=== PATIENT | female | born 2000 | race Caucasian/White ===

== ENCOUNTER 2018-11-16 15:49 | Inpatient (IN) ==
[2018-11-16 16:49] LABS: Pregnancy Test, Urine Negative (Negative)
[2018-11-16 16:52] LABS: Appearance Urine Cloudy (Clear); Bacteria Urine Automated 2+ (Negative); Bilirubin Urine Negative (Negative); Blood Urine Negative (Negative); Color Urine Yellow; Epithelial Cell Urine Auto >30 /lpf (0-5); Glucose Urine UA Negative (Negative); Ketones Urine Negative (Negative); Leukocyte Esterase Urine Trace (Negative); Nitrite Urine Negative (Negative); Protein Urine Negative (Negative); RBC Urine Automated 0-4 /hpf (0-4); Specific Gravity Urine 1.013 (1.000-1.030); Urobilinogen Urine Negative (Negative); pH Urine 6.5 (4.5-7.5)
[2018-11-16 17:04] LABS: Basophils # (auto) 0.01 K/uL (0-0.2); Basophils % (auto) 0.1 %; Eosinophils # (auto) 0.03 K/uL (0-0.5); Eosinophils % (auto) 0.4 %; Hematocrit (blood only) 36.7 % (37-47); Hemoglobin 12.2 g/dL (12.0-16.0); Immature Granulocytes # (auto) 0.02 K/uL (0.00-0.02); Immature Granulocytes % (auto) 0.3 %; Lymphocytes # (auto) 2.05 K/uL (1.2-3.4); Lymphocytes % (auto) 28.7 %; Mean Corpuscular Hemoglobin 30.2 pg (25-34); Mean Corpuscular Hgb Conc 33.2 g/dL (32-36); Mean Corpuscular Volume 90.8 fL (80-100); Mean Platelet Volume 12.3 fL (7.4-10.4); Monocytes # (auto) 0.45 K/uL (0.11-0.59); Monocytes % (auto) 6.3 %; Neutrophils # (auto) 4.58 K/uL (1.4-6.5); Neutrophils % (auto) 64.2 %; Platelet Count 207 K/uL (130-400); RDW Coefficient of Variation 13.2 % (11.5-14.5); RDW Standard Deviation 43.9 fL (36.4-46.3); Red Blood Count 4.04 M/uL (4.2-5.4); White Blood Count 7.14 K/uL (4.8-10.8)
[2018-11-16 17:05] LABS: Cast Urine Automated 0 /lpf (0-5)
[2018-11-16 17:19] LABS: Albumin Level 3.5 gm/dl (3.4-5.0); BUN Creatinine Ratio 12.2 (10-20); Calcium 8.7 mg/dl (8.5-10.1); Creatinine Clr Calc Pharmacy 115.2 ml/min; Est GFR (African American) 149.2; Est GFR (Non-African American) 128.7; Potassium 3.8 mmol/L (3.5-5.1)
[2018-11-16 17:22] LABS: Salicylate < 1.7 mg/dl (2.8-20)
[2018-11-16 17:23] LABS: Acetaminophen < 2 ug/ml (10-30)
[2018-11-16 17:30] LABS: Bilirubin,Total 0.3 mg/dl (0.2-1); Globulin 3.6 gm/dl (2.5-4.0); Thyroid Stimulating Hormone 0.706 uIu/ml (0.300-4.500); Total Protein 7.1 gm/dl (6.4-8.2)
[2018-11-16 17:35] LABS: Amphetamines+Metham, Urine Neg (Neg); Barbiturates, Urine Neg (Neg); Benzodiazepine, Urine Pos (Neg); Cocaine, Urine Neg (Neg); MDMA (Ecstacy), Urine Neg (Neg); Methadone, Urine Neg (Neg); Opiate, Urine Neg (Neg); Phencyclidine, Urine Neg (Neg)
--- NOTE | 2018-11-16 17:55 | Emergency Department Note ---
Entered by Marga Wren acting as a scribe for History of Present Illness General Chief complaint: Mental Health Evaluation Stated complaint: MENTAL HEALTH EVAL Source: patient History of Present Illness Provider complaint: mental health evaluation Onset (ago): week(s) 1 Location: head Quality: + other (mental health evaluation) Associated symptoms: + denies other symptoms (drug use, alcohol use, homicidal ideation, attempts to hurt self) and + other (depression came back secondary to decreased [place], major and school work more difficult, drama in friend group, hard to get out of bed, skipping classes, getting behind in school work, suicidal thoughts via overdose, thinks inpatient treatment may be a good idea) Treatments prior to arrival: none The patient is a 17 year old female who presents to the ED with for a mental health evaluation that started 1 week ago. The patient states that her Lexapro was decreased 1 week ago which has caused her depression to come back. The patient states that her major and school work have been much more difficult recently and there has been increased drama in her friend group. The patient states that it has been hard to get out of bed, which has caused her to skip classes and get behind in school work. The patient states that she has not tried to hurt herself but has had suicidal thoughts via overdosing. The patient denies alcohol and drug use. The patient also denies homicidal ideation. The patient states that she has never had inpatient treatment but she notes that it may be a good idea at this time. The patient denies taking any treatments prior to arrival. Home Medications Home Medications Medication Instructions Recorded Confirmed Type escitalopram oxalate [Lexapro] 5 mg PO HS 11/16/18 11/16/18 History norgestimate-ethinyl estradiol 1 tab PO HS 11/16/18 11/16/18 History [Sprintec (28)] Allergies Allergy/AdvReac Type Severity Reaction Status Date / Time No Known Allergies Allergy Verified 11/16/18 17:34 Past Med/Surg History Medical History Depression OCD (obsessive compulsive disorder) Social History Preferred Language: Martiniquais Communication Ability: Effective Seat Cover Maker Required: No Feels Safe at Home: Yes Smoking Status: Never smoker Review of Systems See HPI for pertinent positives & negatives. and A total of 10 systems reviewed and were otherwise negative Physical Exam Vital Signs Vital Signs - 24 hr 11/16/18 16:04 Temperature 36.9 C Temperature Source Oral Sepsis Recent Fever Within 48 Hours No Sepsis New/Unexplained Change in Mental Status No Sepsis Action Taken by Nursing No Action Required Pulse Rate 88 Pulse Rhythm Regular Pulse Strength Normal Respiratory Rate 18 Respiratory Effort / Characteristics Non-Labored Spontaneous Respiratory Depth Normal Respiratory Pattern Regular Blood Pressure 121/78 Blood Pressure Mean 92 Blood Pressure Position Sitting Pulse Oximetry 99 Oxygen Delivery Method Room Air GENERAL: Awake, alert, well-appearing HENT: Normocephalic, atraumatic. EYES: Normal conjunctiva. Sclera non-icteric. RESPIRATORY: Clear to auscultation. Normal respiratory effort. CARDIAC: Normal rate. Normal rhythm. Extremities warm and well perfused. NEURO: Normal sensorium. No sensory or motor deficits noted. No facial droop or slurred speech. SKIN: Warm and dry. No rash or jaundice noted. PSYCH: Endorses SI. Denies HI and hallucinations. Intact insight. Course 1656: Past medical records reviewed. The patient was evaluated in room A6. A complete history and physical exam was performed. 1741: Patient is medically cleared. 1853: The patient was accepted to [address] [place] [address]. Administered Medications Escitalopram Oxalate (Lexapro Tab) 5 mg PO HS SOFI Stop: 12/16/18 21:59 Last Admin: 11/16/18 22:25 Dose: 5 mg Documented by: [id number] Medical Decision Making Differential Diagnosis Differential diagnosis: Etiologies such as psychiatric disorder, infection, hypoglycemia, electrolyte abnormalities, cardiac sources, intracerebral event, toxicological process, neurologic disorder, as well as others were entertained. Medical Records Attestation: I reviewed the patient's medical records. Home Medications Current Medication List: was personally reviewed by me Laboratory Data Attestation: I reviewed the patient's lab results. Result diagrams: 11/16/18 16:40 11/16/18 16:40 Lab Results 11/16/18 11/16/18 11/16/18 Range/Units 16:19 16:19 16:19 WBC (4.8-10.8) K/uL RBC (4.2-5.4) M/uL Hgb (12.0-16.0) g/dL Hct (37-47) % MCV (80-100) fL MCH (25-34) pg MCHC (32-36) g/dL RDW Std Deviation (36.4-46.3) fL RDW Coeff of Michelle (11.5-14.5) % Plt Count (130-400) K/uL MPV (7.4-10.4) fL Immature Gran % (Auto) % Neut % (Auto) % Lymph % (Auto) % Blanco % (Auto) % Eos % (Auto) % Baso % (Auto) % Immature Gran # (Auto) (0.00-0.02) K/uL Neut # (Auto) (1.4-6.5) K/uL Lymph # (Auto) (1.2-3.4) K/uL Blanco # (Auto) (0.11-0.59) K/uL Eos # (Auto) (0-0.5) K/uL Baso # (Auto) (0-0.2) K/uL Sodium (136-145) mmol/L Potassium (3.5-5.1) mmol/L Chloride (98-107) mmol/L Carbon Dioxide (21-32) mmol/L Anion Gap (3-11) BUN (7-18) mg/dl Creatinine (0.6-1.2) mg/dl Est Cr Clr Drug Dosing ml/min Est GFR ( Amer) Est GFR (Non-Af Amer) BUN/Creatinine Ratio (10-20) Glucose (70-99) mg/dl Calcium (8.5-10.1) mg/dl Total Bilirubin (0.2-1) mg/dl AST (15-37) U/L ALT (12-78) U/L Alkaline Phosphatase (45-117) U/L Total Protein (6.4-8.2) gm/dl Albumin (3.4-5.0) gm/dl Globulin (2.5-4.0) gm/dl Albumin/Globulin Ratio (0.9-2) TSH (0.300-4.500) uIu/ml Urine Color Yellow Urine Appearance Cloudy A (Clear) Urine pH 6.5 (4.5-7.5) Ur Specific [place] 1.013 (1.000-1.030) Urine Protein Negative (Negative) Urine Glucose (UA) Negative (Negative) Urine Ketones Negative (Negative) Urine Blood Negative (Negative) Urine Nitrite Negative (Negative) Urine Bilirubin Negative (Negative) Urine Urobilinogen Negative (Negative) Ur Leukocyte Esterase Trace H (Negative) Urine WBC (Auto) 10-30 H (0-5) /hpf Urine RBC (Auto) 0-4 (0-4) /hpf U Hyaline Cast (Auto) 0 (0-5) /lpf U Epithel Cells (Auto) >30 H (0-5) /lpf Urine Bacteria (Auto) 2+ H (Negative) Ur Renal Epithelial Cell Not Reportable Urine Test Negative (Negative) Salicylates (2.8-20) mg/dl Urine Opiates Screen Neg (Neg) Ur Methadone, Qual Neg (Neg) Acetaminophen (10-30) ug/ml Urine Barbiturates Neg (Neg) Ur Phencyclidine (PCP) Neg (Neg) U Amphetamin/Meth Scrn Neg (Neg) MDMA (Ecstasy) Screen Neg (Neg) U Benzodiazepines Scrn Pos H (Neg) Ur Cocaine Metabolite Neg (Neg) U Marijuana (THC) Screen Neg (Neg) Ethyl Alcohol mg/dL (0-3) mg/dl 11/16/18 11/16/18 11/16/18 Range/Units 16:40 16:40 16:40 WBC 7.14 (4.8-10.8) K/uL RBC 4.04 L (4.2-5.4) M/uL Hgb 12.2 (12.0-16.0) g/dL Hct 36.7 L (37-47) % MCV 90.8 (80-100) fL MCH 30.2 (25-34) pg MCHC 33.2 (32-36) g/dL RDW Std Deviation 43.9 (36.4-46.3) fL RDW Coeff of Michelle 13.2 (11.5-14.5) % Plt Count 207 (130-400) K/uL MPV 12.3 H (7.4-10.4) fL Immature Gran % (Auto) 0.3 % Neut % (Auto) 64.2 % Lymph % (Auto) 28.7 % Blanco % (Auto) 6.3 % Eos % (Auto) 0.4 % Baso % (Auto) 0.1 % Immature Gran # (Auto) 0.02 (0.00-0.02) K/uL Neut # (Auto) 4.58 (1.4-6.5) K/uL Lymph # (Auto) 2.05 (1.2-3.4) K/uL Blanco # (Auto) 0.45 (0.11-0.59) K/uL Eos # (Auto) 0.03 (0-0.5) K/uL Baso # (Auto) 0.01 (0-0.2) K/uL Sodium 139 (136-145) mmol/L Potassium 3.8 (3.5-5.1) mmol/L Chloride 107 (98-107) mmol/L Carbon Dioxide 23 (21-32) mmol/L Anion Gap 9.0 (3-11) BUN 8 (7-18) mg/dl Creatinine 0.65 (0.6-1.2) mg/dl Est Cr Clr Drug Dosing 115.2 ml/min Est GFR ( Amer) 149.2 Est GFR (Non-Af Amer) 128.7 BUN/Creatinine Ratio 12.2 (10-20) Glucose 76 (70-99) mg/dl Calcium 8.7 (8.5-10.1) mg/dl Total Bilirubin 0.3 (0.2-1) mg/dl AST 17 (15-37) U/L ALT 23 (12-78) U/L Alkaline Phosphatase 39 L (45-117) U/L Total Protein 7.1 (6.4-8.2) gm/dl Albumin 3.5 (3.4-5.0) gm/dl Globulin 3.6 (2.5-4.0) gm/dl Albumin/Globulin Ratio 1.0 (0.9-2) TSH 0.706 (0.300-4.500) uIu/ml Urine Color Urine Appearance (Clear) Urine pH (4.5-7.5) Ur Specific [place] (1.000-1.030) Urine Protein (Negative) Urine Glucose (UA) (Negative) Urine Ketones (Negative) Urine Blood (Negative) Urine Nitrite (Negative) Urine Bilirubin (Negative) Urine Urobilinogen (Negative) Ur Leukocyte Esterase (Negative) Urine WBC (Auto) (0-5) /hpf Urine RBC (Auto) (0-4) /hpf U Hyaline Cast (Auto) (0-5) /lpf U Epithel Cells (Auto) (0-5) /lpf Urine Bacteria (Auto) (Negative) Ur Renal Epithelial Cell Urine Test (Negative) Salicylates < 1.7 L (2.8-20) mg/dl Urine Opiates Screen (Neg) Ur Methadone, Qual (Neg) Acetaminophen < 2 L (10-30) ug/ml Urine Barbiturates (Neg) Ur Phencyclidine (PCP) (Neg) U Amphetamin/Meth Scrn (Neg) MDMA (Ecstasy) Screen (Neg) U Benzodiazepines Scrn (Neg) Ur Cocaine Metabolite (Neg) U Marijuana (THC) Screen (Neg) Ethyl Alcohol mg/dL (0-3) mg/dl 11/16/18 Range/Units 16:40 WBC (4.8-10.8) K/uL RBC (4.2-5.4) M/uL Hgb (12.0-16.0) g/dL Hct (37-47) % MCV (80-100) fL MCH (25-34) pg MCHC (32-36) g/dL RDW Std Deviation (36.4-46.3) fL RDW Coeff of Michelle (11.5-14.5) % Plt Count (130-400) K/uL MPV (7.4-10.4) fL Immature Gran % (Auto) % Neut % (Auto) % Lymph % (Auto) % [place] % (Auto) % Eos % (Auto) % Baso % (Auto) % Immature Gran # (Auto) (0.00-0.02) K/uL Neut # (Auto) (1.4-6.5) K/uL Lymph # (Auto) (1.2-3.4) K/uL [place] # (Auto) (0.11-0.59) K/uL Eos # (Auto) (0-0.5) K/uL Baso # (Auto) (0-0.2) K/uL Sodium (136-145) mmol/L Potassium (3.5-5.1) mmol/L Chloride (98-107) mmol/L Carbon Dioxide (21-32) mmol/L Anion Gap (3-11) BUN (7-18) mg/dl Creatinine (0.6-1.2) mg/dl Est Cr Clr Drug Dosing ml/min Est GFR ( Amer) Est GFR (Non-Af Amer) BUN/Creatinine Ratio (10-20) Glucose (70-99) mg/dl Calcium (8.5-10.1) mg/dl Total Bilirubin (0.2-1) mg/dl AST (15-37) U/L ALT (12-78) U/L Alkaline Phosphatase (45-117) U/L Total Protein (6.4-8.2) gm/dl Albumin (3.4-5.0) gm/dl Globulin (2.5-4.0) gm/dl Albumin/Globulin Ratio (0.9-2) TSH (0.300-4.500) uIu/ml Urine Color Urine Appearance (Clear) Urine pH (4.5-7.5) Ur Specific [place] (1.000-1.030) Urine Protein (Negative) Urine Glucose (UA) (Negative) Urine Ketones (Negative) Urine Blood (Negative) Urine Nitrite (Negative) Urine Bilirubin (Negative) Urine Urobilinogen (Negative) Ur Leukocyte Esterase (Negative) Urine WBC (Auto) (0-5) /hpf Urine RBC (Auto) (0-4) /hpf U Hyaline Cast (Auto) (0-5) /lpf U Epithel Cells (Auto) (0-5) /lpf Urine Bacteria (Auto) (Negative) Ur Renal Epithelial Cell Urine Test (Negative) Salicylates (2.8-20) mg/dl Urine Opiates Screen (Neg) Ur Methadone, Qual (Neg) Acetaminophen (10-30) ug/ml Urine Barbiturates (Neg) Ur Phencyclidine (PCP) (Neg) U Amphetamin/Meth Scrn (Neg) MDMA (Ecstasy) Screen (Neg) U Benzodiazepines Scrn (Neg) Ur Cocaine Metabolite (Neg) U Marijuana (THC) Screen (Neg) Ethyl Alcohol mg/dL < 3.0 (0-3) mg/dl Blood Pressure Blood Pressure Findings: Normal blood pressure Blood Pressure Disposition: did not require urgent referral MDM Narrative Patient is a 17-year-old female [facility] with reports of concern for suicidal ideation and thoughts. Patient denies any HI or self-injurious behaviors. Long history of anxiety depression. Recently tapering off Lexapro. This did control her depression but was not controlling her OCD with thoughts to switch to possible BuSpar. Depression is worse in the last 3 weeks. Thoughts of wanting to harm her self last several days including possibly overdosing on medications. States she does have access to Tylenol and her Lexapro at her dorm. Denies any current attempts to harm herself. Denies any other significant medical history. Endorses depression symptoms with fatigue and social and school stressors. information systems manager assist with evaluation. Medical clearance completed. Believe the patient would benefit from inpatient treatment and patient was in agreement. Bed search was initiated. [facility]. Patient denies urinary symptoms and believe urine is contaminant. Patient's accepted by [facility] for further treatment of her suicidal ideations and depression/anxiety. Impression & Plan Suicidal thoughts, Mood disorder Discharge Plan Visit Data *Final* Discharge Date/Time: 11/16/18 18:41 Chief Complaint: Mental Health Evaluation Stated Complaint: MENTAL HEALTH EVAL ED Provider: Kranthi Shah Discharge Problem: Suicidal thoughts, Mood disorder Patient Disposition: Admitted As Inpatient Discharge Instructions Interventions: ED Discharge Assessment Last Done: 11/16/18 18:41 The scribe's documentation has been prepared under my direction and personally reviewed by me in its entirety. I confirm that the note above accurately reflects all work, treatment, procedures, and medical decision making performed by me.
[2018-11-16] MEDS ORDERED: BISMUTH SUBSALICYLATE PER ML OMNICELL CHARGE PO PRN (18:27)
[2018-11-16] MEDS ORDERED: MAGNESIUM HYDROXIDE SUSP 30 ML UDC PO PRN (18:27)
[2018-11-16] MEDS ORDERED: SODIUM CHLORIDE 0.65% NA SOLN 45 ML (OCEAN) PRN (18:27)
[2018-11-16] MEDS ORDERED: ALUMINUM/MAGNESIUM SUSP 30 ML UDC PO PRN (18:27)
[2018-11-16] MEDS ORDERED: ESCITALOPRAM OXALATE 10 MG TAB PO SCH (22:00)
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
[2018-11-17] MEDS ORDERED: INFLUENZA ADMINISTRATION CHARGE ONE (09:00)
[2018-11-17] MEDS ORDERED: INFLUENZA VIRUS QUAD VACCINE 0.5 ML SYR IM ONE (09:00)
[2018-11-17] MEDS: ACETAMINOPHEN 325 MG TAB PO PRN ×2 (11:50→22:31)
[2018-11-17] MEDS ORDERED: SPRINTEC PO SCH (16:00)
[2018-11-17] MEDS ORDERED: BIRTH CONTROL PO SCH (16:00)
[2018-11-17] MEDS: NON-FORMULARY PATIENT'S OWN MED PO SCH (21:20)
[2018-11-17] MEDS ORDERED: NORGESTIMATE ETHINYL ESTRADIOL PO SCH (22:00)
[2018-11-17] MEDS ORDERED: FLUVOXAMINE MALEATE 50 MG TAB PO SCH (22:00)
--- NOTE | 2018-11-18 12:50 | Psychiatric Progress Note ---
Date of Service November 18, 2018 Impression / Recommendations Impression 17-year-old female admitted voluntarily for inpatient psychiatric treatment on 11/16/18 upon referral from [facility] counseling [facility] psychological services office. Patient had been reporting worsening depression associated with medication adjustments and increased psychosocial stressors. Patient admits to increased presence of suicidal ideation, eventually developing to consideration to overdose on medications. Patient did submit her 72-hour notice shortly after arriving on the unit, which expires 11/19 at 2137. Pt has been started on fluvoxamine, which will be titrated to 100mg this evening. She also has busp irone available 10 mg 3 times daily as needed for patient to utilize for acute anxiety on the unit, and potentially continue as a bridgingagent until fluvoxamine efficacy is determined. Pt participated in a family meeting with her father, sister, and aunt. At this time, inpatient psychiatric treatment is medically necessary due to worsening depression, persistent SI, and reported consideration to overdose on pills to remain on secured at this time. Patient remains at high risk of harm to self if she is discharged prematurely without adequate medication of risk factors. (1) Suicidal thoughts: - Admitted to a locked inpatient behavioral health unit, on q15 minute safety checks - Encourage medication initiation/adjustments as indicated - Encourage participation in group and recreational therapies - Gather collateral information from outpatient providers - Suggest family meeting to involve outpatient supports in safety planning - Arrange appropriate aftercare 11/18 - Pt denies SI since time of admission - Friend has reportedly removed medications from patient's dorm room - Family meeting held today to discuss safety planning (2) Depression: 11/17 - Discontinue escitalopram 5 mg due to lack of efficacy and reported decreased libido. Initiate fluvoxamine 50 mg this evening. Risks, benefits, and potential side effects were reviewed with patient who verbalized understanding and was agreeable with initiating fluvoxamine. - Coordinate care with current outpatient providers, records from [facility] were received and reviewed - Involve outpatient supports in aftercare, safety, and discharge planning - Encourage attendance for group and recreational programming to develop healthy and effective coping strategies 11/18 - Tolerated initiation of fluvoxamine - will titrate to 100mg this evening - Aftercare arrangements have been made - Family meeting held today - Pt's 72-hour notice expires tomorrow evening, will continue to ensure stability of mood and resolution of SI with plan for discharge tomorrow afternoon (3) Generalized anxiety disorder: 11/17 - Meets criteria for generalized anxiety disorder, but also reports intrusive thoughts, obsessions, and compulsions that would be consistent with a diagnosis of OCD - Agree with utilization of buspirone as needed as a bridging-agent until efficacy of fluvoxamine can be determined. We will order 10 mg of buspirone 3 times daily as needed - Initiate fluoxetine as discussed above, titrate as tolerated to target reported symptoms - Assist with development of healthy and effective coping strategies - Coordinate referrals for outpatient therapist 11/18 - Has not yet required prn dosing of buspirone - Pt does have 10mg tablets of buspirone as sent by her outpatient provider to a pharmacy, and will likely not need this medication ordered on discharge if planning to continue Inventory Assets Strengths: Willingness for treatment, support of family, sister living locally Needs: Medication adjustments to target reported symptoms, therapeutic interventions to allow for development of healthy coping strategies Risk Factors Assessment Male: No : No Do You Have Access To A Gun?: No Health Problems: No Mental Health Diagnoses: Yes Substance Use Disorders: No Previous Attempt: No Family History of Suicide: No Previous Psychiatric Hospitalization: No Hopelessness: Yes Smoker: No Protective Factors Assessment Jew Beliefs: Yes : No Responsible for Young Children: No Employed: No Stable Relationships: Yes Supportive Family: Yes Good Rapport with Provider: Yes Interval History Identifying Information MERY MORALES is a 17-year-old F who currently lives in an apartment with her roommates. Patient has a reported history of depression, anxiety, and OCD, and was admitted on 11/16/18 18:27 on a 201 voluntary commitment for worsening depression and suicidal ideation, with verbalized consideration to overdose on medications. Patient was referred to the ED following a walk-in appointment at [facility]. Patient did sign a 72-hour shortly after arrival to the unit, this expires on 11/19 at 2137. Chief Complaint "I'm feeling a lot better." Review of Systems Notes Constitutional: reports improved sleep last evening Cardiovascular: denied Respiratory: denied Gastrointestinal: denied Neurological: denied Psychiatric: denies symptoms other than stated above Total of at least 10 systems reviewed, pertinent positives as above and in HPI. Sleep Information Total Hours of Sleep: 7.25 Meal Information Percent Meal Consumed - Breakfast: 100 Percent Meal Consumed - Lunch: 100 Percent Meal Consumed - Dinner: 100 Subjective Subjective Patient was seen & assessed and interval progress reviewed with nursing and social work. Staff reports the patient has been attending group programming and interacting with peers. She has a family meeting scheduled with her father, sister, and aunt today at 11:00. Pt rated her mood a 7/10 and "hopeful" last evening. Pt was seen today to assess progress since admission. Pt states she is feeling "a lot better." She states, "I haven't had any [suicidal] thoughts, so that's good." Pt reports that her family was very supportive during the meeting, and she was able to coordinate various schedules for them to check-in on her. She is also planning to schedule "coffee dates" with her sister during the week to touch [facility]. Pt states that a friend has removed the extra pills f rom her dorm room and is either bringing them to the unit or taking them to [facility] on campus for disposal. Pt reports feeling "happy" and more optimistic. She states that she is feeling much improved and is optimistic about the likelihood of discharge tomorrow. Pt's 72-hour notice remains in place, which expires tomorrow evening. Pt is agreeable to remaining on the unit until tomorrow, to allow for titration of fluvoxamine this evening and to ensure stability of mood and resolution of SI prior to discharge. Pt denies other acute needs or concerns at this time. Physical Exam Psychiatric Orientation: alert, oriented x 3 and cooperative (and pleasant) Apperance: appropriately dressed, appropriately groomed and appeared stated age Eye Contact: good eye contact Motor Behavior: steady gait and station and no abnormal motor movements Speech: normal rate/rhythm/volume of speech Affect: euthymic affect (appearing mildly fatigued, as she was awoken from a nap) and mood congruent with affect Mood: no depressed mood ("A lot better") Thought Process: goal directed thought process, linear/logical thought process, clear/coherent thought process and thought association intact Thought Content: reality based without delusions; no hopelessness and no worthlessness Suicidal Thoughts: denies suicidal thoughts ("No [suicidal] thoughts, so that's good") and denies suicidal intent Homicidal Thoughts: denies homicidal thoughts Hallucinations: no auditory hallucinations and no visual hallucinations Cognition: attention grossly intact and language grossly intact Insight: good insight Judgement: good judgement Vital Signs (Past 24 Hours) Last Vital Signs Temp 36.5 C 11/18/18 06:51 Pulse 82 11/18/18 06:51 Resp 18 11/18/18 06:51 BP 101/65 11/18/18 06:51 Pulse Ox 98 11/16/18 20:32 Results & Data Current Inpatient Medications Current Inpatient Medications: Current Inpatient Medications Acetaminophen (Tylenol) 650 mg PO Q4H PRN PRN Reason: Headache or Minor Fever Stop: 12/16/18 18:26 Last Admin: 11/17/18 22:31 Dose: 650 mg Documented by: Al Hydrox/Mg Hydrox/Simethicone (Maalox) 30 ml PO Q4H PRN PRN Reason: GI Upset Stop: 12/16/18 18:26 Bismuth Subsalicylate (Kaopectate) 15 ml PO PRN PRN PRN Reason: Loose Stool Stop: 12/16/18 18:26 Buspirone HCl (Buspar) 10 mg PO TID PRN PRN Reason: anxiety Stop: 12/17/18 20:59 Fluvoxamine Maleate (Luvox) 50 mg PO HS SOFI Stop: 12/17/18 21:59 Last Admin: 11/17/18 21:17 Dose: 50 mg Documented by: Hydroxyzine HCl (Vistaril) 25 mg PO Q4H PRN PRN Reason: Anxiety Stop: 12/16/18 18:26 Hydroxyzine HCl (Vistaril) 50 mg PO HSZ PRN PRN Reason: Insomnia Stop: 12/16/18 18:26 Magnesium Hydroxide (Milk Of Magnesia) 30 ml PO DAILY PRN PRN Reason: Constipation Stop: 12/16/18 18:26 Non-Formulary Medication (Non-Formulary Patient's Own Med) 1 ea PO HS SOFI Stop: 12/17/18 21:59 Last Admin: 11/17/18 21:20 Dose: Not Given Documented by: Sodium Chloride ([place] Nasal) 1 - 2 sprays NA PRN PRN PRN Reason: Nasal Dryness/Congestion Stop: 12/16/18 18:26 Mental Health & Subst Abuse Tx Psychiatrist Name of Psychiatrist: PETEY Estrada Psychiatrist's Date of Appointment with Psychiatrist: 11/23/18 Time of Appointment with Psychiatrist: 9:00 a.m. Psychiatric Appointment Comment: [facility] Therapist Name of Therapist: Leidy Barillas Krystyna Therapist's Date of Therapist Appointment: 11/23/18 Time of Therapist Appointment: 3:30pm Therapy Appointment Comment: [address], [address], [place] [employer] Name of [place] Operator: [facility] [place] Phone Number for [place] Operator: [phone] Date of Appointment with [place] Operator: 11/24/18 Time of Appointment with [place] Operator: 4pm Case Management Appointment Comment: [address] [facility] Post Discharge Appointments Primary Care Physician Name Of Family Doctor: [facility] Primary Care Time of Appointment with PCP: Please follow up as needed [facility] [id number] Contact Information Discharge Discharge Address: [address] [place] [address] CPT Code CPT Code 86194 (1) Depression Active/Remission status: currently active Depression Type: major depressive disorder Major depression episode severity: severe Major depression recurrence: recurrent Psychotic features: without psychotic features Qualified Code(s): F33.2 - Major depressive disorder, recurrent severe without psychotic features
[2018-11-18] MEDS: NON-FORMULARY PATIENT'S OWN MED PO SCH (21:34)
[2018-11-18] MEDS ORDERED: FLUVOXAMINE MALEATE 50 MG TAB PO SCH (22:00)
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
[2018-11-19 12:51] LABS: 7-Aminoclonaz, Confirm NEGATIVE NG/ML (CUTOFF=25); Hydro-Alp Ur, GC/MS 63 NG/ML (CUTOFF=25); Hydroxyethylflurazepam, Conf NEGATIVE NG/ML (CUTOFF=50); Hydroxytriazolam NEGATIVE NG/ML (CUTOFF=50); Lorazepam, Ur GC/MS NEGATIVE NG/ML (CUTOFF=50); Nordiazepam, Confirm NEGATIVE NG/ML (CUTOFF=50); Oxazepam Ur, GC/MS NEGATIVE NG/ML (CUTOFF=50); Temazepam, Confirm NEGATIVE NG/ML (CUTOFF=50)
== END 2018-11-19 10:52 | disposition home or self-care (01) | DRG 885 ==
LOC: ED 15:49 → 3S 18:27